=== PATIENT | male | born 1985 | race Caucasian/White ===

== ENCOUNTER 2025-01-30 00:52 | Emergency (ER) | payer BC, OTHER ==
[2025-01-30] MEDS ORDERED: Sodium Chloride 0.9% 10 ML Syringe FLUSH PRN (01:59)
[2025-01-30] MEDS: fentaNYL 100 MCG/2 ML SDV IVPUSH ONE (02:16)
[2025-01-30] MEDS: Sodium Chloride 0.9% 80 ML IV ONE (02:38)
[2025-01-30] MEDS: Iopamidol 612 MG/ML 100 ML Bottle IV PRN (02:39)
[2025-01-30] MEDS: Sodium Chloride 0.9% 10 ML Syringe FLUSH PRN (02:39)
[2025-01-30] MEDS: HYDROmorphone 0.5 MG/0.5 ML Syringe IVPUSH ONE (03:12)
== END 2025-01-30 03:46 | disposition home or self-care (01) ==
LOC: JP.ED 00:52
DX: R10.13 Epigastric pain (principal); F17.200 Nicotine dependence, unspecified, uncomplicated; Z88.8 Allergy status to other drugs, medicaments and biological substances
CPT/HCPCS: 74177; 96374; 96375; 99284; J3010; Q9967; J1171